=== PATIENT | female | born 1965 | race Hispanic/Latino ===

== ENCOUNTER 2025-02-19 12:36 | Emergency (ER) | payer BC, OTHER ==
[~2025-02-19] VITALS: Ht 162.6 cm; Wt 70.3 kg
[2025-02-19 12:59] VITALS: PULSE 87; RESP 18; TEMP 97.3
[2025-02-19] MEDS ORDERED: DOXYCYCLINE HY100 MG PO (13:26)
[2025-02-19] MEDS ORDERED: MUPIROCIN22 GM TOP (13:35)
[2025-02-19 14:10] VITALS: BP 134/78; PULSE 62; RESP 18; TEMP 97.2; O2SAT 98
== END 2025-02-19 14:12 | disposition home or self-care (01) ==
LOC: ER 13:17
DX: S30.850A Superficial foreign body of lower back and pelvis, initial encounter (principal); L08.89 Other specified local infections of the skin and subcutaneous tissue
CPT/HCPCS: 99282